=== PATIENT | female | born 1985 | race Two or more races ===

== ENCOUNTER → 2024-01-24 | Outpatient (CLI) | payer BC, SELFPAY ==
--- NOTE | 2024-01-24 09:15 | XR_ITS ---
Examination: Diagnostic digital mammography, unilateral, left Computer aided detection 3-D breast Tomosynthesis, unilateral Date and time of exam: January 24, 2024 0915 hours INDICATIONS: Mammogram January 10, 2024 grouped microcalcifications lower inner left breast Technique: Nonmagnified MLO, CC views of the left breast have been obtained, reconstructed from 3-D Tomosynthesis images. R2 computer aided detection program utilized for evaluation of suspicious masses and/or abnormal calcifications. 3-D Tomosynthesis images obtained. Findings: Scattered areas of fibroglandular density Calcifications appear on the skin left breast Impression: BI-RADS category 2: Benign findings Return to yearly follow-up mammography
== END | disposition home or self-care (01) ==
LOC: CDIM 09:02
PROVIDERS: PCP Family Medicine; Referring Provider Family Medicine; Visit Provider Family Medicine
DX: R92.322 Mammographic fibroglandular density, left breast (principal); R92.1 Mammographic calcification found on diagnostic imaging of breast
CPT/HCPCS: 77061; 77065; G0279

== ENCOUNTER 2024-05-07 14:45 | Emergency (ER) | payer BC, SELFPAY ==
[2024-05-07 14:57] VITALS: BP 153/111; BP 170/115; PULSE 105; RESP 18; TEMP 36.9; O2SAT 98; BMI 43.4
--- NOTE | 2024-05-07 15:06 | XR_ITS ---
Examination: CT brain head without contrast. 2-D sagittal coronal reconstructions Date and time of exam:May 07, 2024, 1512 hrs. Indications: Onset dizziness episodes today CTDI: vol (mGy):56 DLP: (mGycm):1136 Technique: Multiple CT axial sections of the brain have been obtained, 5 mm slice thickness. Contrast has not been administered. 2-D sagittal, coronal reconstructions have been obtained Low dose protocols were performed. One or more of the following dose reduction techniques were used; automated exposure control, adjustment of the mA and/or KV according to patient size, use of iterative reconstruction technique. Findings: No significant ventricular enlargement. Intra-axial or extra-axial hemorrhage density is not seen. No mass effect or midline shift Basal cisterns are not remarkable. Fourth ventricle is midline. Cranial vault intact. Impression: Negative for acute hemorrhage, mass effect or midline shift
--- NOTE | 2024-05-07 15:06 | EKG_ITS ---
[facility] Test Date: 2024-05-07 Pat Name: JOEY HARVEY Department: Room: - Gender: Female [employer] D[employer]: : 1985 Requested By: Holger Meyers Order Number: [id number] Reading MD: Holger Meyers Measurements Intervals [place] Rate: 103 P: 39 NH: 117 QRS: 1 QRSD: 93 T: 2 QT: 369 QTc: 484 Interpretive Statements SINUS TACHYCARDIA WITH SHORT NH INTERVAL MINIMAL ST DEPRESSION [0.025+ mV ST DEPRESSION] ABNORMAL RHYTHM ECG Compared to ECG 04/24/2017 02:04:51 ST (T wave) deviation now present Sinus rhythm no longer present Sinus arrhythmia no longer present T-wave abnormality no longer present /store/S0/[id number].pdf
--- NOTE | 2024-05-07 15:08 | PD.EDEAR ---
ED Ear RME/HPI General Chief complaint: Ear Stated complaint: LEFT EAR PAIN Time Seen by Provider: 05/07/24 14:48 Source: patient Arrival date/time: 05/07/24 14:45 38-year-old female with a history of anemia presents to the emergency room with a chief complaint of lightheadedness, left-sided numbness and headaches, and left-sided ear pain x 3 days. Patient states she was sent over by her primary care provider for a CT scan of her head. Mode of arrival: ambulatory Limitations: no limitations Related Data Home Medications ?Medication ?Instructions ?Recorded ?Confirmed ferrous sulfate 325 mg (65 mg 325 mg PO BID 09/19/19 09/24/19 iron) tablet (Iron (ferrous sulfate)) vits no.124-ferrous fum 1 tab PO QDAY 09/19/19 09/24/19 27 mg iron-folic acid 800 mcg tablet ( Vitamin) Previous Rx's ?Medication ?Instructions ?Recorded ibuprofen 600 mg tablet 600 mg PO Q6H PRN pain #120 tabs 09/21/19 furosemide 20 mg tablet (Lasix) 20 mg PO QDAY #7 tabs 09/24/19 Allergies Allergy/AdvReac Type Severity Reaction Status Date / Time Penicillins Allergy Severe Swelling Verified 05/07/24 14:47 of Lip/Tongue/Throat sulfamethoxazole (From Allergy Severe Swelling Verified 05/07/24 14:47 Bactrim) of Lip/Tongue/Throat trimethoprim (From Bactrim) Allergy Severe Swelling Verified 05/07/24 14:47 of Lip/Tongue/Throat Review of Systems Review of Systems Systems Reviewed: All systems reviewed, normal except as documented Constitutional Constitutional: Reports system reviewed and no additional complaints, except as documented, Denies fatigue, Denies fever(s), Reports headache(s) and Denies weakness Eyes Eyes: Reports system reviewed and no additional complaints, except as documented, Denies blurry vision and Denies change in vision ENT Ears, Nose, Mouth, and Throat: Reports system reviewed and no additional complaints, except as documented, Denies ear discharge, Reports otalgia, Reports headache(s), Denies nasal congestion, Denies throat swelling and Reports vertigo Cardiovascular Cardiovascular: Reports system reviewed and no additional complaints, except as documented, Denies chest pain, Denies dyspnea and Denies dyspnea on exertion Respiratory Respiratory: Reports system reviewed and no additional complaints, except as documented, Denies chest congestion, Denies cough, Denies dyspnea, Denies dyspnea on exertion and Denies wheezing Gastrointestinal Gastrointestinal: Reports system reviewed and no additional complaints, except as documented, Denies abdominal pain, Denies cramping, Denies nausea and Denies vomiting Genitourinary Genitourinary: Reports system reviewed and no additional complaints, except as documented Musculoskeletal Musculoskeletal: Reports system reviewed and no additional complaints, except as documented and Denies back pain Integumentary/Breasts Skin/Breast: Reports system reviewed and no additional complaints, except as documented and Denies wounds Neurologic Neurologic: Reports system reviewed and no additional complaints, except as documented, Denies confusion, Reports headache(s), Denies lack of coordination, Reports vertigo and Denies weakness Psychiatric Psychiatric: Reports system reviewed and no additional complaints, except as documented, Denies anxiety, Denies confusion, Denies depression, Denies paranoia, Denies suicidal ideation and Denies tactile hallucinations Endocrine Endocrine: Reports system reviewed and no additional complaints, except as documented and Denies fatigue Hematologic/Lymphatic Hematologic/Lymphatic: Reports system reviewed and no additional complaints, except as documented and Denies lymphadenopathy Allergic/Immunologic Allergic/Immunologic: Reports system reviewed and no additional complaints, except as documented, Denies throat swelling, Denies urticaria and Denies wheezing ED Exam General Limitations: Present no limitations General appearance: Present alert and in no apparent distress Head Head exam: Present atraumatic, normocephalic and normal inspection Eye Eye exam: Present normal appearance, PERRL and EOMI ENT ENT exam: Present normal exam, normal oropharynx and mucous membranes moist Expanded ENT Exam External ear exam: Present normal external inspection Teeth exam: Present normal inspection Throat exam: Present normal inspection Neck Neck exam: Present normal inspection, full ROM and trachea midline Chest Chest inspection: Present normal inspection and symmetric chest wall rise Respiratory Respiratory exam: Present normal lung sounds bilaterally Cardiovascular Cardiovascular exam: Present regular rate, normal rhythm and normal heart sounds Abdominal Exam Abdominal exam: Present soft and normal bowel sounds Extremities Exam Extremities exam: Present normal inspection and full ROM Back Exam Back exam: Present normal inspection and full ROM Neurological Exam Neurological exam: Present alert, oriented X3, CN II-XII intact and normal gait Expanded Neurological Exam Patient oriented to: Present person, place and time Speech: Present fluid speech Cranial nerves: Normal: EOM function (II, III, IV, ), facial sensation (V) and facial palsy (VII) Motor strength - LUE: 5/5 Motor strength - RUE: 5/5 Motor strength - LLE: 5/5 Motor strength - RLE: 5/5 Coma scale eye opening: spontaneous Coma scale motor response: obeys commands Coma scale verbal response: oriented Coma scale total: 15 Psychiatric Psychiatric exam: Present normal affect and normal mood Skin Skin exam: Present warm, dry, intact and normal color Course Quality Measures none Orders Category Date Time Status EKG (ED ONLY) *Do not use* NOW Care 05/07/24 15:[address] head/brain wo con Stat Exams 05/07/24 15:06 Completed EKG (ED Only) Stat Exams 05/07/24 15:06 Draft BNP [B-Type Natriuretic Peptide] Stat Lab 05/07/24 15:20 Completed CBC Stat Lab 05/07/24 15:20 Completed CMP [Comprehensive Metabolic Panel] Stat Lab 05/07/24 15:20 Completed Troponin I Stat Lab 05/07/24 15:20 Completed cloNIDine HCL [Catapres] Med 05/07/24 15:07 Discontinued 0.1 mg PO X1 ONE Vital Signs Vital signs: Vital Signs Temperature 98.4 F 05/07/24 14:57 Pulse Rate 105 H 05/07/24 14:57 Respiratory Rate 18 05/07/24 14:57 Blood Pressure 153/111 H 05/07/24 14:57 Pulse Oximetry (%) 98 05/07/24 14:57 Oxygen Delivery Method Room Air 05/07/24 14:57 Procedures -ED EKG Interpretation #1: Date of EK05/08/24 Rate: 103 Interpretation: Reviewed by me EKG Impression: Sinus tachycardia Additional EKG comment: EKG shows sinus tachycardia with no ST deviation Ear Patient data External records reviewed:: [facility] previous records Clinical information provided by:: patient Social determinants that could affect healthcare access:: none Patient has the following chronic illnesses:: No chronic illness How is presenting disease/condition affected by chronic disease/condition?: no chronic disease Evaluation data The following diagnostics were reviewed and interpreted by me:: lab results and radiology exam(s) Lab and/or radiology exams considered but not ordered:: Labs and radiology exams considered and ordered Interpretation Summary: CT of the head and brain-Findings: No significant ventricular enlargement. Intra-axial or extra-axial hemorrhage density is not seen. No mass effect or midline shift Basal cisterns are not remarkable. Fourth ventricle is midline. Cranial vault intact. Impression: Negative for acute hemorrhage, mass effect or midline shift Medications / Prescriptions Medications or Prescriptions considered but not ordered:: Medication given Medication administrations:: Medication Administration History Discontinued Medications Clonidine (Clonidine Hcl 0.1 Mg Tablet) 0.1 mg PO X1 ONE Stop: 05/07/24 15:08 Last Admin: 05/07/24 15:35 Dose: 0.1 mg Documented By: AMENA Medication given Consultations Consultation(s) initiated? (list below): No Diagnosis Ear Differential Diagnosis: otitis externa, otitis media and other Most likely diagnosis given after review of the tests above:: Otitis media Admission Indicated Admission indicated?: not indicated Admission Request Was there a request for admission?: No Disposition Plan Disposition Plan: Discharge Discharge Attestation Discharge Attestation: The patient and all family members were given an opportunity to ask questions and understood the discharge instructions. Discharge instructions specifically effects, indications for sooner follow up or return to the emergency department, and the expected course of current diagnosis. Patient condition: Stable Medical Decision Making MDM Narrative MDM Narrative: 38-year-old female with a history of anemia presents to the emergency room with a chief complaint of lightheadedness, left-sided numbness and headaches, and left-sided ear pain x 3 days. Patient states she was sent over by her primary care provider for a CT scan of her head. Patient is hemodynamically stable and in no apparent distress Patient states she was sent over by her primary care provider for a CT scan of her head. The patient has had left-sided headaches facial numbness and ear pain the last 3 days. The patient has also had some lightheadedness and weakness. When she saw her primary care provider the primary care provider told her to come to the emergency room to rule out a mass in her head or a CVA. The patient is a GCS of 15 she is alert and oriented x 3 pupils are PERRLA EOMs are intact there is no unilateral weakness. The patient has strong upper extremities and lower extremities and all cranial reflexes are intact. Patient is complaining of a 10 out of 10 left-sided headache and left-sided ear pain. The patient tympanic membranes appear clear and nonbulging. There is no external ear tenderness. A CT of the head and brain was completed and was negative for any acute hemorrhage mass effect or midline shift. CBC CMP were negative for any leukocytosis. EKG shows sinus tachycardia at [address] deviation. Troponin was negative. Patient was initially hypertensive after 0.1 of clonidine her blood pressure dropped down to 147/95 and she has no longer tachycardic. Patient is currently on antibiotics for otitis media that were prescribed by her primary care provider. Patient was educated to continue to take her antibiotics. Patient was discharged and educated to follow-up with primary care provider in the next 24 to 48 hours and return to the emergency room for any evidence of worsening signs or symptoms Differential Diagnosis Differential Diagnosis: Otitis media/otitis externa/headache/lightheadedness Lab Data 05/07/24 15:20 05/07/24 15:20 Labs: Lab Results 05/07/24 Range/Units 15:20 WBC 8.1 (3.6-11.0) Thou/mm3 RBC 4.85 (4.00-5.20) Miln/mm3 Hgb 11.9 L (12.0-16.0) g/dL Hct 37.8 (36.0-46.0) % MCV 78 L (80-100) fL MCH 24.5 L (25.0-35.0) pg MCHC 31.5 (31.0-37.0) g/dl RDW Std Deviation 39.5 (36.4-46.3) fL Plt Count 429 (140-440) Thou/mm3 Neut % (Auto) 67 (37-80) % Lymph % (Auto) 26 (10-50) % [facility] [place] [facility] % (Auto) 6 (0-12) % Eos % (Auto) 1 (0-10) % Baso % (Auto) 0 (0-2.5) % Neut # (Auto) 5.4 (1.8-7.7) Thou/mm3 Lymph # (Auto) 2.1 (1.0-4.8) Thou/mm3 [facility] # (Auto) 0.5 (0.0-0.8) Thou/mm3 Eos # (Auto) 0.1 (0.0-0.5) Thou/mm3 Baso # (Auto) 0.0 (0.0-0.2) Thou/mm3 Immature Gran # (Auto) 0.02 H (0.00-0.00) Thou/mm3 Absolute Nucleated RBC 0.00 (0.00-0.00) Thou/mm3 Immature Gran % 0 (0-0) % Nucleated RBC % 0 (0) /100 WBC Sodium 140 (136-145) mMol/L Potassium 3.6 (3.4-5.1) mMol/L Chloride 105 (98-107) mMol/L Carbon Dioxide 23.6 (20.0-31.0) mMol/L Anion Gap 11 (7-16) BUN 11 (9-23) mg/dL Creatinine 0.7 (0.6-1.3) mg/dL Estim Creat Clear Calc 132.8 (>60) mL/min eGFR > 60 (60 - ) See Note BUN/Creatinine Ratio 16 (12-20) Ratio Glucose 95 (74-106) mg/dL Calculated Osmolality 278 (275-295) Calcium 9.0 (8.3-10.6) mg/dL Corrected Calcium 9.0 (8.5-10.1) mg/dL Total Bilirubin 0.4 (0.3-1.2) mg/dL AST 19 (0-34) U/L ALT 14 (10-49) U/L Alkaline Phosphatase 61 (46-116) U/L Troponin I < 0.002 (0.0-0.045) ng/mL B-Natriuretic Peptide 22 (0-100) pg/mL Total Protein 7.5 (5.7-8.2) gm/dL Albumin 4.8 (3.5-5.0) gm/dL Globulin 2.7 (2.3-3.5) gm/dL Albumin/Globulin Ratio 1.8 (1.2-2.2) Discharge Plan Plan Patient Disposition: HOME (Self Care) Disposition Comment: Stable Prescriptions/Referrals Prescriptions/Med Rec: No Action ferrous sulfate [Iron (ferrous sulfate)] 325 mg (65 mg iron) Tablet 325 mg PO BID Vitamin 27 mg iron- 800 mcg Tablet 1 tab PO QDAY ibuprofen 600 mg tablet 600 mg PO Q6H MDD 5 PRN (Reason: pain) Qty: 120 0RF furosemide [Lasix] 20 mg tablet 20 mg PO QDAY Qty: 7 0RF Referrals: No Primary/Family,Physician [Primary Care Provider] - In 1 week Problem List Clinical Impression: Otitis media Patient/Caregiver Discharge Instructions Additional Instructions: Please follow-up with your primary care provider in the next [address] of your head and brain was completed and was negative for any acute findings. There is no masses or any hemorrhage in your head. Your blood work was negative for any acute findings. Your EKG was within normal limits. Please continue to take the antibiotics that were prescribed by your primary care provider for your ear infection. For any evidence of worsening signs or symptoms return to the emergency room immediately Print Language: Azeri Stand Alone Forms: Wendy Award Info., Patient Portal Info Letter PA/LUMITE INJECTOR Supervising Physician HERSON/MATT Supervising Physician: Dr. Abraham
[2024-05-07 15:35] VITALS: BP 153/111; PULSE 105
[2024-05-07 15:35] LABS: Basophils % (Auto) 0 % (0-2.5); Eosinophils # (Auto) 0.1 Thou/mm3 (0.0-0.5); Eosinophils % (Auto) 1 % (0-10); Hematocrit 37.8 % (36.0-46.0); Hemoglobin 11.9 g/dL (12.0-16.0); Immature Granulocytes % (Auto) 0 % (0-0); Immature Granulocytes Auto 0.02 Thou/mm3 (0.00-0.00); Lymphocytes # (Auto) 2.1 Thou/mm3 (1.0-4.8); Lymphocytes % (Auto) 26 % (10-50); Mean Corpuscular HGB Conc 31.5 g/dl (31.0-37.0); Mean Corpuscular Hemoglobin 24.5 pg (25.0-35.0); Mean Corpuscular Volume 78 fL (80-100); Monocytes # (Auto) 0.5 Thou/mm3 (0.0-0.8); Monocytes % (Auto) 6 % (0-12); Neutrophils # (Auto) 5.4 Thou/mm3 (1.8-7.7); Neutrophils % (Auto) 67 % (37-80); Nucleated Red Blood Cell % 0 /100 WBC (0); Platelet Count 429 Thou/mm3 (140-440); RDW Standard Deviation 39.5 fL (36.4-46.3); Red Blood Count 4.85 Miln/mm3 (4.00-5.20); White Blood Count 8.1 Thou/mm3 (3.6-11.0)
[2024-05-07] MEDS: cloNIDine HCL 0.1 MG TABLET PO (15:35)
[2024-05-07 15:56] LABS: B-Type Natriuretic Peptide 22 pg/mL (0-100)
[2024-05-07 15:57] LABS: Alanine Aminotransferase 14 U/L (10-49); Albumin, Serum 4.8 gm/dL (3.5-5.0); Albumin/Globulin Ratio 1.8 (1.2-2.2); Alkaline Phosphatase 61 U/L (46-116); Anion Gap 11 (7-16); Aspartate Amino Transferase 19 U/L (0-34); BUN/Creatinine Ratio 16 Ratio (12-20); Bilirubin,Total 0.4 mg/dL (0.3-1.2); Blood Urea Nitrogen 11 mg/dL (9-23); Carbon Dioxide 23.6 mMol/L (20.0-31.0); Chloride 105 mMol/L (98-107); Creatinine (Component) 0.7 mg/dL (0.6-1.3); Estimated Creatinine Clearance 132.8 mL/min (>60); Globulin 2.7 gm/dL (2.3-3.5); Glucose 95 mg/dL (74-106); Osmolality,Calculated 278 (275-295); Potassium 3.6 mMol/L (3.4-5.1); Sodium 140 mMol/L (136-145); Total Protein 7.5 gm/dL (5.7-8.2); Troponin I < 0.002 ng/mL (0.0-0.045); eGFR > 60 See Note
--- NOTE | 2024-05-07 16:00 | PRELIM_ITS ---
CT scan of the head without intravenous contrast (axial sections with sagittal and coronal reformats). May 07, 2024 1512 hours Clinical History: dizziness Comparison: No prior study is available for comparison. Findings: No evidence of intracranial hemorrhage, mass effect or midline shift. The ventricles and CSF spaces are unremarkable. The calvarium is unremarkable. The mastoid air cells and the visualized paranasal sinuses are clear. Impression: No evidence of intracranial hemorrhage, mass effect or midline shift. Report Electronically Signed By: Gurdeep Bryan 05/07/2024 3:59:43 PM [EST]
[2024-05-07 17:32] VITALS: BP 147/95; PULSE 72
== END 2024-05-07 17:34 | disposition home or self-care (01) ==
PROVIDERS: Nurse Practitioner Family; Emergency Provider Emergency Medicine
DX: H66.92 Otitis media, unspecified, left ear (principal); R20.0 Anesthesia of skin; R51.9 Headache, unspecified; R42 Dizziness and giddiness
CPT/HCPCS: 36415; 70450; 80053; 83880; 84484; 85025; 93005; 99284; A9270

== ENCOUNTER → 2024-08-23 | Outpatient (CLI) | payer BC, SELFPAY ==
--- NOTE | 2024-08-23 16:09 | XR_ITS ---
EXAMINATION: Cervical spine, 5 views Technique: Cervical spine AP, AP odontoid, lateral, bilateral obliques, 5 views Exam date and time: August 23, 2024, 1634 hours INDICATIONS: Neck pain beginning 4 months ago. FINDINGS: Straightening normal cervical lordosis. Early disc narrowing C4-C5 No cervical fracture The oblique films are limited in quality The odontoid is intact IMPRESSION: Early degenerative disc disease C4-C5
== END | disposition home or self-care (01) ==
LOC: CDIM 16:00
PROVIDERS: PCP Family Medicine
DX: M50.321 Other cervical disc degeneration at C4-C5 level (principal)
CPT/HCPCS: 72050